=== PATIENT | female | born 1980 ===

== ENCOUNTER 2023-11-19 07:24 | Outpatient (CLI) | payer MEDICAID | END 2023-11-19 23:59 | disposition home or self-care (01) | LOC: MRI 07:24 | PROVIDERS: ATTEND Podiatrist Foot & Ankle Surgery | DX: M19.072 Primary osteoarthritis, left ankle and foot (principal); M25.472 Effusion, left ankle; M25.872 Other specified joint disorders, left ankle and foot | CPT/HCPCS: 73721 ==